=== PATIENT | male | born 1995 | race Caucasian/White ===

== ENCOUNTER 2016-12-30 08:19 | Emergency (ER) | payer SELFPAY ==
[~2016-12-30] VITALS: Ht 188 cm; Wt 120.5 kg
[2016-12-30 08:23] VITALS: TEMP 36.8; Ht 188 cm; Wt 120.5 kg
[2016-12-30] MEDS ORDERED: ASPIRIN 324 MG CHEW PO STA (08:31)
[2016-12-30] MEDS ORDERED: NITROGLYCERIN OINT 2% 1GM PACKET EXT STA (08:31)
[2016-12-30] MEDS ORDERED: MoRPHine SULFATE 4 MG/ML 1 ML CARP\\VIAL IV STA (08:53)
[2016-12-30] MEDS ORDERED: ONDANSETRON INJ 2 MG/ML 2 ML VIAL IV STA (08:53)
[2016-12-30 08:56] LABS: BASO % 0.4 %; BASO ABS # 0.03 K/uL (0-0.2); COMPLETE YES; HEMATOCRIT 46.6 % (42-52); IG% 0.3 %; LYMPH ABS # 2.36 K/uL (1.2-3.4); MEAN CELL VOLUME 89.8 fL (80-100); MEAN CORPUSCULAR HEMOGLOBIN 30.4 pg (25-34); MEAN CORPUSCULAR HGB CONC 33.9 g/dl (32-36); MEAN PLATELET VOLUME 10.1 fL (7.4-10.4); MONO % 5.7 %; NEUT % 59.6 %; PLATELET COUNT 207 K/uL (130-400); RED BLOOD COUNT 5.19 M/uL (4.7-6.1); WHITE BLOOD COUNT 7.15 K/uL (4.8-10.8)
--- NOTE | 2016-12-30 09:02 | EMERGENCY ROOM VISIT NOTE ---
History First contact with patient: 08:26 Chief Complaint: CHEST PAIN Stated Complaint: CHEST PAIN Nursing Triage Summary: Pt presents with c/o left sided chest pain that began this morning. Pain into left hand. Denies cardiac hx. States pain with deep breath. History of Present Illness The patient is a 21 year old male who presents to the Emergency Room via private vehicle with complaints of "chest pain". The patient states that this morning around 6:30 AM he was in his closet getting dressed, when he developed left anterior chest pain rated as a 9/10 and squeezing in nature. He notes it is worse with a deep breath, and movement. He did have a tingling sensation down his left arm for approximately 5 minutes. He does a fair amount of overhead lifting. He does note that he is unsure of his father's family history as he when he was young, but he personally denies any history of heart attack, blood clots or recent trauma. He does smoke. Review of Systems A complete 10-point Review of Systems was discussed with the patient, with pertinent positives and negatives listed in the History of Present Illness. All remaining Review of Systems questions can be considered negative unless otherwise specified. Past Medical/Surgical History Tubes, tendon repair right arm Family History Diabetes, cancer, kidney disease or stones. Father of drug abuse. Social History Smoking Status: Current Every Day Smoker Social History: Patient lives with [facility], admits to tobacco and alcohol products and works here in [facility] with the [employer]. Current/Historical Medications No Active Prescriptions or Reported Meds Allergies Coded Allergies: No Known Allergies (Unverified , 12/30/16) Physical Exam Vital Signs Date Time Temp Pulse Resp B/P Pulse Ox O2 Delivery O2 Flow Rate FiO2 12/30/16 12:28 48 16 132/75 98 12/30/16 11:59 86 16 151/88 12/30/16 11:28 48 16 153/87 12/30/16 10:37 51 16 141/71 12/30/16 10:24 51 12/30/16 09:56 53 16 120/68 12/30/16 08:23 36.8 73 18 158/79 95 Room Air Physical Exam VITAL SIGNS - Vital signs and nursing notes were reviewed. Afebrile, hypertensive at 158/79, non-tachycardic and is saturating well on room air at 95 %. GENERAL -21-year-old male appearing his stated age who is in no acute distress. Communicates well with provider and answers questions appropriately. SKIN - Without rashes. No petechial rashes. There is a well-healed scar on the right forearm. HEAD - NC/AT. EYES - PERRL with EOMI bilaterally. Sclera anicteric. Palpebral conjunctiva pink and moist with no injection noted. EARS - No deformities of external structures noted on gross examination bilaterally. NOSE - Midline and without cyanosis. No epistaxis or purulent drainage noted. MOUTH/OROPHARYNX - Without perioral cyanosis. Buccal mucosa pink and moist and without leukoplakia. NECK - Neck with FROM. Supple to palpation. LUNGS - Chest wall symmetric without accessory muscle use, intercostals retractions, or central cyanosis. Normal vesicular breath sounds CTA B/L. No wheezes, rales, or rhonchi appreciated. CARDIAC - RRR with S1/S2. No murmur, rubs, or gallops appreciated. ABDOMEN - Abdominal contour without pulsations or visible masses. BS normoactive all four quadrants. No tenderness, palpable masses, hepatosplenomegaly, or ascites noted. EXTREMITIES - No clubbing or peripheral cyanosis. +5/5 strength noted in UE/LE bilaterally. Shoulder flexion and abduction elicited upon active range of motion reproduced tenderness in the left pectoralis region extending to the left shoulder. NEUROLOGIC - Cranial nerves II through XII grossly intact. Sensory intact to light touch throughout. PSYCH - Pt is very pleasant and interacts well with examiner. Medical Decision & Procedures ER Provider Diagnostic Interpretation: CHEST ONE VIEW PORTABLE CLINICAL HISTORY: Chest pain dyspnea COMPARISON STUDY: No previous studies for comparison. FINDINGS: The bones soft tissues and hemidiaphragms are normal. The cardiomediastinal silhouette is normal. The lungs are clear. The pulmonary vasculature is normal. IMPRESSION: Negative chest. Electronically signed by: Niko Salguero M.D. 12/30/2016 9:26 AM Dictated Date/Time: 12/30/2016 9:26 AM Laboratory Results 12/30/16 08:35 Red Blood Count 5.19, Mean Corpuscular Volume 89.8, Mean Corpuscular Hemoglobin 30.4, Mean Corpuscular Hemoglobin Concent 33.9, Mean Platelet Volume 10.1, Neutrophils (%) (Auto) 59.6, Lymphocytes (%) (Auto) 33.0, Monocytes (%) (Auto) 5.7, Eosinophils (%) (Auto) 1.0, Basophils (%) (Auto) 0.4, Neutrophils # (Auto) 4.26, Lymphocytes # (Auto) 2.36, Monocytes # (Auto) 0.41, Eosinophils # (Auto) 0.07, Basophils # (Auto) 0.03 12/30/16 08:35 Test 12/30/16 08:35 12/30/16 10:35 White Blood Count 7.15 K/uL (4.8-10.8) Red Blood Count 5.19 M/uL (4.7-6.1) Hemoglobin 15.8 g/dL (14.0-18.0) Hematocrit 46.6 % (42-52) Mean Corpuscular Volume 89.8 fL (80-100) Mean Corpuscular Hemoglobin 30.4 pg (25-34) Mean Corpuscular Hemoglobin Concent 33.9 g/dl (32-36) Platelet Count 207 K/uL (130-400) Mean Platelet Volume 10.1 fL (7.4-10.4) Neutrophils (%) (Auto) 59.6 % Lymphocytes (%) (Auto) 33.0 % Monocytes (%) (Auto) 5.7 % Eosinophils (%) (Auto) 1.0 % Basophils (%) (Auto) 0.4 % Neutrophils # (Auto) 4.26 K/uL (1.4-6.5) Lymphocytes # (Auto) 2.36 K/uL (1.2-3.4) Monocytes # (Auto) 0.41 K/uL (0.11-0.59) Eosinophils # (Auto) 0.07 K/uL (0-0.5) Basophils # (Auto) 0.03 K/uL (0-0.2) RDW Standard Deviation 41.6 fL (36.4-46.3) RDW Coefficient of Variation 12.8 % (11.5-14.5) Immature Granulocyte % (Auto) 0.3 % Immature Granulocyte # (Auto) 0.02 K/uL (0.00-0.02) D-Dimer < 190 ug/L FEU (0-500) Anion Gap 6.0 mmol/L (3-11) Est Creatinine Clear Calc Drug Dose 132.1 ml/min Estimated GFR () 98.2 Estimated GFR (Non- 84.7 BUN/Creatinine Ratio 15.7 (10-20) Calcium Level 8.3 mg/dl (8.5-10.1) Total Bilirubin 0.4 mg/dl (0.2-1) Aspartate Amino Transf (AST/SGOT) 15 U/L (15-37) Alanine Aminotransferase (ALT/SGPT) 50 U/L (12-78) Alkaline Phosphatase 45 U/L (45-117) Total Creatine Kinase 202 U/L (39-308) Creatine Kinase MB 2.6 ng/ml (0.5-3.6) Creatine Kinase MB Ratio 1.3 (0-3.0) Total Protein 7.1 gm/dl (6.4-8.2) Albumin 4.1 gm/dl (3.4-5.0) Globulin 3.0 gm/dl (2.5-4.0) Albumin/Globulin Ratio 1.4 (0.9-2) Lipase 109 U/L (73-393) Bedside Troponin I 0.000 ng/ml (0-0.045) Medications Administered Medications (Trade) Dose Ordered Sig/Aimee Route Start Time Stop Time Status Last Admin Dose Admin Aspirin (Aspirin Chew) 324 mg NOW STAT PO 12/30/16 08:31 12/30/16 08:49 DC 12/30/16 09:02 324 MG Morphine Sulfate (MoRPHine SULFATE INJ) 4 mg NOW STAT IV 12/30/16 08:53 12/30/16 08:54 DC 12/30/16 09:05 4 MG Ondansetron HCl (Zofran Inj) 4 mg NOW STAT IV 12/30/16 08:53 12/30/16 08:54 DC 12/30/16 09:03 4 MG Medical Decision Patient was seen and evaluated as above. After obtaining a thorough history and physical examination IV access was initiated and the above workup was performed. There is no significant cardiac history or risk factors identified. For his pain, he was given morphine, Zofran for any potential nausea as well as aspirin. He was initially ordered nitroglycerin however this was discontinued and never provided as his blood pressure was already on the lower side, and the morphine provided relief. The patient does smoke. Patient is troponin is 0. His EKG does reveal normal sinus rhythm, with PVCs. Rate of 60 bpm without ectopy or ischemic change. Chest x-ray is negative. CBC is unremarkable, CMP does reveal chloride high at 108, BUN 19, and calcium low at 8.3. 90 minute troponin repeat was negative. No change from previous. The patient is PERC negative, however due to the inspiratory chest pain did elect to obtain a d-dimer which was also negative. The patient this time is most likely experiencing a muscle strain of the left pectoralis major region. I do not suspect any life-threatening or emergent ailment at this time. He was instructed to follow-up with his family doctor regarding today's findings and his elevated blood pressure. He indicated he does not have a family doctor, therefore our rn case manager hospice did provide him with information regarding [facility] in medicine as he works here at [facility]. Patient seemed happy with this, and is to call them later today or first thing tomorrow morning to schedule follow-up. He was educated upon management today's findings, educated upon worrisome symptoms which to return, had questions to discharge and was discharged home in good condition. In evaluation treatment this patient following differential diagnoses entertained: ME, PE, costochondritis, pneumonia, muscle strain, pericarditis, pneumothorax, among others. Impression Primary Impression: Chest wall pain Departure Information Dispostion Home / Self-Care Condition GOOD Prescriptions No Active Prescriptions or Reported Meds Referrals No Doctor, Assigned (PCP) Patient Instructions [facility] Additional Instructions You were seen in the emergency department for chest pain. Through a series of tests and close monitoring it is very unlikely at this time you are experiencing a heart attack or life-threatening lung condition. As we discussed it is recommended that he follow-up with a family doctor regarding today's visit as well as your high blood pressure. Today you're blood pressure was 158/79. Our rn case manager hospice has supplied you with information regarding [facility]. Please call their number either later today or first thing tomorrow morning to schedule follow-up and establish a family doctor. We're here 16/03, If you develop any new/concerning symptoms is recommended you please return.
[2016-12-30 09:04] LABS: BUN/CREATININE RATIO 15.7 (10-20); CALCIUM 8.3 mg/dl (8.5-10.1); CREATININE 1.2 mg/dl (0.60-1.40)
[2016-12-30 09:09] LABS: ALB/GLOB RATIO 1.4 (0.9-2); CKMB/CK RATIO 1.3 (0-3.0)
--- NOTE | 2016-12-30 09:27 | DIAGNOSTIC IMAGING REPORT ---
CHEST ONE VIEW PORTABLE CLINICAL HISTORY: Chest pain dyspnea COMPARISON STUDY: No previous studies for comparison. FINDINGS: The bones soft tissues and hemidiaphragms are normal. The cardiomediastinal silhouette is normal. The lungs are clear. The pulmonary vasculature is normal. IMPRESSION: Negative chest. Electronically signed by: Niko Salguero M.D. 12/30/2016 9:26 AM Dictated Date/Time: 12/30/2016 9:26 AM
[2016-12-30] MEDS ORDERED: NITROGLYCERIN OINT 2% 1GM PACKET EXT ONE (09:30)
[2016-12-30 12:28] VITALS: BP 132/75; PULSE 48; O2SAT 98
== END 2016-12-30 12:46 | disposition home or self-care (01) ==
LOC: C.EDB 08:22
DX: R07.89 Other chest pain (principal); R20.2 Paresthesia of skin; Z81.3 Family history of other psychoactive substance abuse and dependence; Z83.3 Family history of diabetes mellitus; Z84.1 Family history of disorders of kidney and ureter; F17.200 Nicotine dependence, unspecified, uncomplicated